=== PATIENT | female | born 1965 | race Caucasian/White ===

== ENCOUNTER 2017-08-12 10:41 | Emergency (ER) | payer OTHER ==
[~2017-08-12] VITALS: Ht 165.1 cm; Wt 112.6 kg
[~2017-08-12 10:41] MED LIST: ABILIFY5 MG PO; ALLEGRA180 MG PO; BACLOFEN10 MG; BACLOFEN10 MG PO; COPAXONE20 MG/KIT SQ; COPAXONE40 MG/1 ML SC; CYMBALTA60 MG PO; HYDROCODON-ACE1 EAC7 PO; IBUPROFEN100 MG PO; IBUPROFEN800 MG PO; INDERAL LA80 MG PO; INDERAL60 MG PO; MACROBID100 MG PO; MAXALT10 MG PO; MELOXICAM15 MG PO; PREDNISONE50 MG PO; PRILOSEC20 MG PO; PROZAC40 MG PO; STOOL SOFT-STI1 EACH PO; TRAZODONE HCL50 MG PO; TYLENOL WITH C1 EACH PO; XANAX0.5 MG PO; XANAX1 MG PO
[2017-08-12 11:34] LABS: HEMATOCRIT 41.2 % (36.0-46.0); MCH 27.9 PG (29.0-34.0); MCV 84.4 FL (83-99); MEAN PLAT.VOLUME 10.6 uM^3 (9.5-12.4); PLATELET COUNT 308 K/uL (156-360); RBC DIS.WIDTH-CV 13.2 % (11.8-14.6); RBC DIS.WIDTH-SD 41.3 % (39-53); RED BLOOD COUNT 4.88 M/uL (3.80-5.20); WHITE BLOOD COUNT 10.2 K/uL (4.1-10.2)
[2017-08-12 11:39] LABS: ADD MIUA? NO; BILIRUBIN NEGATIVE; BLOOD NEGATIVE; COLOR STRAW ((YELLOW)); GLUCOSE (STRIP) NEGATIVE; KETONES NEGATIVE; LEUKOCYTES NEGATIVE; NITRITE NEGATIVE; PROTEIN (STRIP) NEGATIVE; SPECIFIC GRAVITY 1.006 (1.000-1.030); UROBILINOGEN 0.2 MG/DL (0.2-1.0)
[2017-08-12 11:42] LABS: UCUL ADDED? NO
[2017-08-12 11:45] LABS: CHLORIDE 105 mEq/L (99-109); POTASSIUM 3.7 mEq/L (3.7-5.4); SODIUM 140 mEq/L (136-147)
[2017-08-12 11:48] LABS: GLUCOSE 93 mg/dL (70-99)
[2017-08-12 11:49] LABS: ANION GAP 9 MEQ/L (2-14); TOTAL BILIRUBIN 0.3 mg/dL (0.0-1.0)
[2017-08-12 11:51] LABS: ALKALINE PHOSPHATASE 102 IU/L (3-129); GFR ESTIMATE (CALCULATED) > 59 mL/min/
[2017-08-12 11:52] LABS: UREA NITROGEN (BUN) 11 mg/dL (9-23)
[2017-08-12 11:55] LABS: LIPASE 28 U/L (1.0-51.0)
[2017-08-12 12:03] LABS: QUANTITATIVE HCG < 4.0 MIU/ML
[2017-08-12] MEDS ORDERED: CLONAZEPAM1 MG PO (13:00)
[2017-08-12] MEDS ORDERED: SERTRALINE HCL100 MG PO (13:02)
[2017-08-12] MEDS ORDERED: BENTYL20 MG PO (13:38)
[2017-08-12] MEDS ORDERED: ZOFRAN4 MG PO (13:38)
[2017-08-12 14:28] VITALS: BP 116/96
== END 2017-08-12 14:28 | disposition home or self-care (01) ==
LOC: EME 10:41
DX: R10.30 Lower abdominal pain, unspecified (principal); R11.0 Nausea; R15.2 Fecal urgency; Z90.710 Acquired absence of both cervix and uterus; Z87.891 Personal history of nicotine dependence
CPT/HCPCS: 74022; 80053; 81003; 83690; 84702; 85027

== ENCOUNTER 2017-08-16 17:57 | Emergency (ER) | payer OTHER ==
[~2017-08-16] VITALS: Ht 165.1 cm; Wt 111.3 kg
[~2017-08-16 17:57] MED LIST changes: +BENTYL20 MG PO; +CLONAZEPAM1 MG PO; +SERTRALINE HCL100 MG PO; +ZOFRAN4 MG PO
[2017-08-16 18:57] LABS: HEMATOCRIT 42.2 % (36.0-46.0); MCH 27.4 PG (29.0-34.0); MCHC 32.5 G/DL (30.0-36.0); MCV 84.4 FL (83-99); MEAN PLAT.VOLUME 10.2 uM^3 (9.5-12.4); PLATELET COUNT 334 K/uL (156-360); RBC DIS.WIDTH-CV 13.3 % (11.8-14.6); RBC DIS.WIDTH-SD 41.1 % (39-53); WHITE BLOOD COUNT 12.2 K/uL (4.1-10.2)
[2017-08-16 19:07] LABS: CHLORIDE 102 mEq/L (99-109); POTASSIUM 3.7 mEq/L (3.7-5.4); SODIUM 138 mEq/L (136-147)
[2017-08-16 19:09] LABS: GLUCOSE 104 mg/dL (70-99)
[2017-08-16 19:11] LABS: ANION GAP 7 MEQ/L (2-14); TOTAL BILIRUBIN 0.3 mg/dL (0.0-1.0)
[2017-08-16 19:13] LABS: ALKALINE PHOSPHATASE 89 IU/L (3-129); GFR ESTIMATE (CALCULATED) > 59 mL/min/
[2017-08-16 19:14] LABS: UREA NITROGEN (BUN) 9 mg/dL (9-23)
[2017-08-16 19:28] LABS: QUANTITATIVE HCG < 4.0 MIU/ML
[2017-08-16 19:39] LABS: ADD MIUA? YES; BILIRUBIN NEGATIVE; BLOOD NEGATIVE; COLOR YELLOW ((YELLOW)); GLUCOSE (STRIP) NEGATIVE; KETONES NEGATIVE; LEUKOCYTES NEGATIVE; NITRITE NEGATIVE; PROTEIN (STRIP) NEGATIVE; SPECIFIC GRAVITY 1.016 (1.000-1.030); UROBILINOGEN 0.2 MG/DL (0.2-1.0)
[2017-08-16 19:49] LABS: BACTERIA RARE /HPF; EPITHELIAL CELLS RARE /HPF; MUCUS TRACE /LPF; RED BLOOD CELLS 0-5 /HPF (0-5); UCUL ADDED? NO; WHITE BLOOD CELLS 0-5 /HPF (0-5)
[2017-08-16] MEDS ORDERED: BENTYL10 MG PO (21:31)
[2017-08-16] MEDS ORDERED: ZOFRAN ODT4 MG PO (21:31)
[2017-08-16 21:58] VITALS: BP 178/87
== END 2017-08-16 21:59 | disposition home or self-care (01) ==
LOC: EME 17:57
DX: K59.00 Constipation, unspecified (principal); R10.30 Lower abdominal pain, unspecified; R11.0 Nausea; M79.7 Fibromyalgia; K21.9 Gastro-esophageal reflux disease without esophagitis; G43.909 Migraine, unspecified, not intractable, without status migrainosus; G35 Multiple sclerosis; Z87.891 Personal history of nicotine dependence
CPT/HCPCS: 74177; 80053; 81003; 84702; 85027; 99281; 99285; J7030

== ENCOUNTER 2017-08-29 13:27 | Emergency (ER) | payer OTHER ==
[~2017-08-29] VITALS: Ht 165.1 cm; Wt 110.8 kg
[~2017-08-29 13:27] MED LIST changes: +BENTYL10 MG PO; +ZOFRAN ODT4 MG PO
[2017-08-29 15:26] LABS: HEMATOCRIT 40.7 % (36.0-46.0); MCH 27.8 PG (29.0-34.0); MCHC 32.9 G/DL (30.0-36.0); MCV 84.4 FL (83-99); MEAN PLAT.VOLUME 10.1 uM^3 (9.5-12.4); PLATELET COUNT 291 K/uL (156-360); RED BLOOD COUNT 4.82 M/uL (3.80-5.20); WHITE BLOOD COUNT 10.6 K/uL (4.1-10.2)
[2017-08-29 15:36] LABS: CHLORIDE 101 mEq/L (99-109); POTASSIUM 3.6 mEq/L (3.7-5.4); SODIUM 136 mEq/L (136-147)
[2017-08-29 15:38] LABS: GLUCOSE 135 mg/dL (70-99)
[2017-08-29 15:39] LABS: ANION GAP 9 MEQ/L (2-14)
[2017-08-29 15:40] LABS: TOTAL BILIRUBIN 0.5 mg/dL (0.0-1.0)
[2017-08-29 15:42] LABS: ALKALINE PHOSPHATASE 75 IU/L (3-129); GFR ESTIMATE (CALCULATED) > 59 mL/min/
[2017-08-29 15:43] LABS: UREA NITROGEN (BUN) 7 mg/dL (9-23)
[2017-08-29 15:45] LABS: LIPASE 21 U/L (1.0-51.0)
[2017-08-29] MEDS ORDERED: CARAFATE1 GM PO (17:27)
[2017-08-29 17:35] VITALS: BP 133/88
== END 2017-08-29 17:43 | disposition home or self-care (01) ==
LOC: EME 13:27
PROVIDERS: Physician Assistant
DX: R10.9 Unspecified abdominal pain (principal); K21.9 Gastro-esophageal reflux disease without esophagitis; M79.7 Fibromyalgia; G35 Multiple sclerosis; F41.9 Anxiety disorder, unspecified; F32.9 Major depressive disorder, single episode, unspecified; Z90.710 Acquired absence of both cervix and uterus; Z87.891 Personal history of nicotine dependence; Z88.8 Allergy status to other drugs, medicaments and biological substances
CPT/HCPCS: 74020; 80053; 83690; 85027; 99281; 99284

== ENCOUNTER → 2018-01-07 | Outpatient (CLI) | payer OTHER ==
[~2018-01-07] MED LIST changes: +CARAFATE1 GM PO
== END | disposition home or self-care (01) ==
LOC: NUC 08:30
DX: R11.0 Nausea (principal); Z86.010 Personal history of colon polyps; Z80.0 Family history of malignant neoplasm of digestive organs; K21.9 Gastro-esophageal reflux disease without esophagitis
CPT/HCPCS: 78264; A9541

== ENCOUNTER 2018-05-31 21:18 | Emergency (ER) | payer OTHER ==
[~2018-05-31] VITALS: Ht 165.1 cm; Wt 110.1 kg
[2018-05-31 21:46] LABS: HEMATOCRIT 38.7 % (36.0-46.0); HEMOGLOBIN 13.1 G/DL (11.9-15.5); MCH 28.8 PG (29.0-34.0); MCHC 33.9 G/DL (30.0-36.0); MCV 85.1 FL (83-99); PLATELET COUNT 291 K/uL (156-360); RBC DIS.WIDTH-CV 13.2 % (11.8-14.6); RED BLOOD COUNT 4.55 M/uL (3.80-5.20); WHITE BLOOD COUNT 12.2 K/uL (4.1-10.2)
[2018-05-31 21:53] LABS: ALBUMIN 3.9 g/dL (3.2-4.8)
[2018-05-31 21:54] LABS: CHLORIDE 102 mEq/L (99-109); POTASSIUM 3.6 mEq/L (3.7-5.4); SODIUM 138 mEq/L (136-147)
[2018-05-31 21:56] LABS: GLUCOSE 109 mg/dL (70-99); TOTAL PROTEIN 7.1 g/dL (6.4-8.3)
[2018-05-31 21:58] LABS: TOTAL BILIRUBIN 0.2 mg/dL (0.0-1.0)
[2018-05-31 21:59] LABS: ALKALINE PHOSPHATASE 97 IU/L (3-129)
[2018-05-31 22:00] LABS: GFR ESTIMATE (CALCULATED) > 59 mL/min/
[2018-05-31 22:01] LABS: AST (GOT) 16 IU/L (2-34); UREA NITROGEN (BUN) 12 mg/dL (9-23)
[2018-05-31 22:02] LABS: ALT (GPT) 12 IU/L (3-49)
[2018-05-31 22:09] LABS: QUANTITATIVE HCG < 4.0 MIU/ML
[2018-05-31 22:25] LABS: APPEARANCE CLEAR ((CLEAR)); BILIRUBIN NEGATIVE; BLOOD NEGATIVE; COLOR YELLOW ((YELLOW)); GLUCOSE (STRIP) NEGATIVE; KETONES NEGATIVE; LEUKOCYTES NEGATIVE; NITRITE NEGATIVE; PROTEIN (STRIP) NEGATIVE; SPECIFIC GRAVITY 1.011 (1.000-1.030); UCUL ADDED? NO; UROBILINOGEN 0.2 MG/DL (0.2-1.0)
[2018-05-31] MEDS ORDERED: NORCO 5/3251 TABLET PO (22:57)
[2018-05-31 23:41] VITALS: BP 151/90
== END 2018-05-31 23:41 | disposition home or self-care (01) ==
LOC: RME 21:18 → EME 21:18 → RME 23:41
DX: R10.13 Epigastric pain (principal); K21.9 Gastro-esophageal reflux disease without esophagitis; M79.7 Fibromyalgia; G35 Multiple sclerosis; F32.9 Major depressive disorder, single episode, unspecified; F41.9 Anxiety disorder, unspecified; G43.909 Migraine, unspecified, not intractable, without status migrainosus; Z87.891 Personal history of nicotine dependence; Z90.710 Acquired absence of both cervix and uterus; Z88.1 Allergy status to other antibiotic agents; Z88.2 Allergy status to sulfonamides; Z88.8 Allergy status to other drugs, medicaments and biological substances
CPT/HCPCS: 80053; 81003; 84702; 85027; 99281; 99284

== ENCOUNTER 2018-06-21 07:55 | Day surgery (SDC) | payer OTHER ==
[~2018-06-21] VITALS: Ht 166.4 cm; Wt 108.0 kg
[~2018-06-21 07:55] MED LIST changes: +NORCO 5/3251 TABLET PO
[2018-06-21 08:48] VITALS: BP 127/81
[2018-06-21] MEDS ORDERED: NORCO 5/3251 TABLET PO (10:37)
[2018-06-21] MEDS ORDERED: COLACE100 MG PO (10:37)
[2018-06-21 16:25] VITALS: BP 139/73
[2018-06-21 17:01] VITALS: BP 145/62
== END 2018-06-21 17:08 | disposition home or self-care (01) ==
LOC: SDC 07:55
DX: K80.10 Calculus of gallbladder with chronic cholecystitis without obstruction (principal); K42.9 Umbilical hernia without obstruction or gangrene; G35 Multiple sclerosis; M79.7 Fibromyalgia; K21.9 Gastro-esophageal reflux disease without esophagitis; Z87.891 Personal history of nicotine dependence
CPT/HCPCS: 88304; J1100; J1170; J2250; J2405; J2710; J3010; J7643; S0074